=== PATIENT | male | born 1960 | race Caucasian/White ===

== ENCOUNTER → 2016-09-18 | Outpatient (CLI) | payer OTHER ==
[~2016-09-18] MED LIST: B-1100 MG PO; DAILY VITAMIN1 EAC8 PO; LIBRIUM25 MG PO; LISINOPRIL40 MG PO; MOTRIN400 MG PO; MOTRIN800 MG PO; NASACORT AQ16.5 GM BOTH NARES; NOHOMEMEDS; ZESTRIL40 MG PO
== END | disposition home or self-care (01) ==
LOC: RAD 08:59
DX: Z02.71 Encounter for disability determination (principal)
CPT/HCPCS: 71020

== ENCOUNTER 2017-04-24 08:55 | Inpatient (IN) | payer OTHER ==
[~2017-04-24] VITALS: Ht 177.8 cm; Wt 74.5 kg
[2017-04-24 09:14] LABS: BASOPHIL COUNT 0.1 K/uL (0-0.1); EOSINOPHIL (%) 0.4 % (0-5); HEMATOCRIT 37.8 % (38.0-50.0); IMMATURE GRANULOCYTE (%) 0.2 % (0.0-0.7); INSTRUMENT ABS NEUTROPHIL CT 4.3 K/uL; LYMPHOCYTE COUNT 0.6 K/uL (1.0-2.8); MCH 32.4 PG (29.0-34.0); MCHC 35.2 G/DL (30.0-36.0); MEAN PLAT.VOLUME 8.9 uM^3 (9.0-12.4); MONOCYTE COUNT 0.7 K/uL (0-0.8); NEUTROPHIL (%) 75.6 % (45-76); NEUTROPHIL COUNT 4.3 K/uL (1.8-6.4); PLATELET COUNT 171 K/uL (156-360); RBC DIS.WIDTH-CV 14.7 % (11.8-14.6); RBC DIS.WIDTH-SD 49.5 % (39-53); RED BLOOD COUNT 4.11 M/uL (4.00-5.50); WHITE BLOOD COUNT 5.7 K/uL (4.1-10.2)
[2017-04-24 09:25] LABS: CHLORIDE 94 mEq/L (99-109); POTASSIUM 3.7 mEq/L (3.7-5.4); SODIUM 131 mEq/L (136-147)
[2017-04-24 09:26] LABS: GLUCOSE 123 mg/dL (70-99)
[2017-04-24 09:28] LABS: ANION GAP 17 MEQ/L (2-14)
[2017-04-24 09:30] LABS: GFR ESTIMATE (CALCULATED) > 59 mL/min/; SERUM ETHYL ALCOHOL < 10 mg/dL
[2017-04-24 09:31] LABS: UREA NITROGEN (BUN) 9 mg/dL (9-23)
[2017-04-24 14:55] LABS: TOTAL BILIRUBIN 0.7 mg/dL (0.0-1.0)
[2017-04-24 14:57] LABS: ALKALINE PHOSPHATASE 64 IU/L (3-129)
[2017-04-24 14:59] LABS: DIRECT BILIRUBIN 0.3 mg/dL (0.0-0.3)
[2017-04-24 15:00] LABS: LIPASE 63 U/L (1.0-51.0)
[2017-04-24 17:57] VITALS: BP 159/82
[2017-04-24 19:30] VITALS: BP 142/87
[2017-04-24 23:39] VITALS: BP 144/94
[2017-04-25 04:47] VITALS: BP 159/96
[2017-04-25 06:41] LABS: ANION GAP 6 MEQ/L (2-14); CHLORIDE 100 MEQ/L (99-109); GFR ESTIMATE (CALCULATED) > 59 mL/min/; GLUCOSE 105 mg/dL (70-99); POTASSIUM 3.7 MEQ/L (3.7-5.4); SAMPLE HEMOLYSIS CHECK 0; SAMPLE ICTERIC CHECK 0; SAMPLE LIPEMIA CHECK 0; SODIUM 136 MEQ/L (136-147); UREA NITROGEN (BUN) 15 mg/dL (9-23)
[2017-04-25 07:46] VITALS: BP 145/93
[2017-04-25 11:44] VITALS: BP 130/91
[2017-04-25 15:34] VITALS: BP 154/99
[2017-04-25 23:44] VITALS: BP 152/98
[2017-04-26 09:47] LABS: EOSINOPHIL (%) 1.7 % (0-5); EOSINOPHIL COUNT 0.1 K/uL (0-0.3); HEMATOCRIT 35.2 % (38.0-50.0); IMMATURE GRANULOCYTE (%) 0.2 % (0.0-0.7); INSTRUMENT ABS NEUTROPHIL CT 3.8 K/uL; LYMPHOCYTE COUNT 1.1 K/uL (1.0-2.8); MCH 33.2 PG (29.0-34.0); MCHC 34.4 G/DL (30.0-36.0); MEAN PLAT.VOLUME 9.9 uM^3 (9.0-12.4); MONOCYTE (%) 12.9 % (3-12); MONOCYTE COUNT 0.7 K/uL (0-0.8); NEUTROPHIL COUNT 3.8 K/uL (1.8-6.4); PLATELET COUNT 128 K/uL (156-360); RBC DIS.WIDTH-CV 15.2 % (11.8-14.6); RBC DIS.WIDTH-SD 54.3 % (39-53); RED BLOOD COUNT 3.64 M/uL (4.00-5.50); WHITE BLOOD COUNT 5.7 K/uL (4.1-10.2)
[2017-04-26 09:48] LABS: MCV 96.7 FL (86-99)
[2017-04-26 10:08] LABS: ALKALINE PHOSPHATASE 45 IU/L (3-129); ANION GAP 6 MEQ/L (2-14); CHLORIDE 101 MEQ/L (99-109); GFR ESTIMATE (CALCULATED) > 59 mL/min/; GLUCOSE 125 mg/dL (70-99); POTASSIUM 3.2 MEQ/L (3.7-5.4); SAMPLE HEMOLYSIS CHECK 0; SAMPLE ICTERIC CHECK 0; SAMPLE LIPEMIA CHECK 0; SODIUM 136 MEQ/L (136-147); TOTAL BILIRUBIN 0.5 MG/DL (0.0-1.0); UREA NITROGEN (BUN) 10 mg/dL (9-23)
[2017-04-26 16:13] VITALS: BP 118/76
[2017-04-27 00:26] VITALS: BP 156/95
[2017-04-27 08:05] VITALS: BP 140/97
[2017-04-27 16:00] VITALS: BP 146/91
[2017-04-28 00:14] VITALS: BP 156/108
[2017-04-28 07:28] VITALS: BP 148/73
[2017-04-28 07:44] LABS: HEMATOCRIT 36.8 % (38.0-50.0); MCH 32.5 PG (29.0-34.0); MCHC 33.4 G/DL (30.0-36.0); MCV 97.1 FL (86-99); MEAN PLAT.VOLUME 9.2 uM^3 (9.0-12.4); RBC DIS.WIDTH-CV 14.6 % (11.8-14.6); RBC DIS.WIDTH-SD 52.6 % (39-53); RED BLOOD COUNT 3.79 M/uL (4.00-5.50); WHITE BLOOD COUNT 5.7 K/uL (4.1-10.2)
[2017-04-28 07:49] LABS: PLATELET COUNT 171 K/uL (156-360)
[2017-04-28 07:57] LABS: ANION GAP 8 MEQ/L (2-14); CHLORIDE 102 MEQ/L (99-109); GFR ESTIMATE (CALCULATED) > 59 mL/min/; GLUCOSE 99 mg/dL (70-99); POTASSIUM 3.6 MEQ/L (3.7-5.4); SAMPLE HEMOLYSIS CHECK 0; SAMPLE ICTERIC CHECK 0; SAMPLE LIPEMIA CHECK 0; SODIUM 137 MEQ/L (136-147); UREA NITROGEN (BUN) 12 mg/dL (9-23)
[2017-04-28 09:54] LABS: MAGNESIUM 1.6 mg/dl (1.3-2.7)
[2017-04-28 15:18] VITALS: BP 131/85
[2017-04-29 00:03] VITALS: BP 143/94
[2017-04-29 07:38] LABS: ANION GAP 6 MEQ/L (2-14); CHLORIDE 106 MEQ/L (99-109); GFR ESTIMATE (CALCULATED) > 59 mL/min/; GLUCOSE 99 mg/dL (70-99); POTASSIUM 4.3 MEQ/L (3.7-5.4); SAMPLE HEMOLYSIS CHECK 0; SAMPLE ICTERIC CHECK 0; SAMPLE LIPEMIA CHECK 0; SODIUM 139 MEQ/L (136-147); UREA NITROGEN (BUN) 20 mg/dL (9-23)
[2017-04-29 08:31] VITALS: BP 148/93
[2017-04-29 16:00] VITALS: BP 132/79
[2017-04-29 19:55] VITALS: BP 150/91
[2017-04-29 23:42] VITALS: BP 142/90
[2017-04-30 07:34] VITALS: BP 132/89
[2017-04-30] MEDS ORDERED: LOPRESSOR25 MG PO (12:51)
[2017-04-30] MEDS ORDERED: ARICEPT5 MG PO (12:51)
[2017-04-30 15:59] VITALS: BP 134/87
== END 2017-04-30 18:20 | disposition home health service (06) | DRG 897 ==
LOC: EME 08:55 → 5SOUTH 14:12 → EDOF 14:12 → ENRESERV 14:23 → 5SOUTH 17:42
PROVIDERS: Emergency Medicine; Internal Medicine; Nurse Practitioner Adult Health
DX: F10.239 Alcohol dependence with withdrawal, unspecified (principal); F12.90 Cannabis use, unspecified, uncomplicated; F03.90 Unspecified dementia, unspecified severity, without behavioral disturbance, psychotic disturbance, mood disturbance, and anxiety; I10 Essential (primary) hypertension; R45.6 Violent behavior; F17.210 Nicotine dependence, cigarettes, uncomplicated; E87.1 Hypo-osmolality and hyponatremia; E86.1 Hypovolemia; E87.6 Hypokalemia
CPT/HCPCS: 71010; 80048; 80053; 80076; 83690; 83735; 85025; 85027; 93005; 99202; 99281; 99285; G0480; J1630; J1650; J2060; J2405; J3475; J7030; J7042; J7050; S0028